=== PATIENT | female | born 1995 | race Two or more races ===

== ENCOUNTER 2016-07-31 22:56 | Emergency (ER) | payer MEDICAID ==
[~2016-07-31] VITALS: Ht 162.6 cm; Wt 45.4 kg
[2016-08-01 00:25] LABS: DEFINITIVE VIEW TRANSMISSION; Hematocrit 45.2 % (36.0-46.0); Hemoglobin 14.9 g/dL (12.2-16.2); Mean Corpuscular Hemoglobin 29.2 pg (28.0-32.0); Mean Corpuscular Volume 88.4 fL (80.0-100.0); Platelet Count (auto) 312 10^3/uL (140-450); Red Cell Distribution Width 12.3 % (11.6-16.0); SUSPECT VIEW TRANSMISSION; White Blood Cell 17.7 10^3/uL (4.4-10.8)
[2016-08-01 00:35] LABS: Metamyelocytes % 0; Myelocytes % 0; Promyelocytes % 0; Reactive Lymphocytes 0
[2016-08-01 00:56] LABS: Albumin 4.7 g/dL (3.4-5.0); BUN/Creatinine Ratio 17.3; Calcium 9.5 mg/dL (8.5-10.1); Potassium 3.9 mmol/L (3.5-5.1)
[2016-08-01 01:08] LABS: Bilirubin, Total 0.9 mg/dL (0.2-1.0); Total Protein 8.3 g/dL (6.4-8.2)
[2016-08-01 02:11] LABS: Platelet Estimate Adequate; RBC Morphology Normal
[2016-08-01 03:01] VITALS: BP 119/70
== END 2016-08-01 05:14 | disposition left against medical advice (07) ==
LOC: ER 22:57
DX: R11.2 Nausea with vomiting, unspecified (principal); Z53.21 Procedure and treatment not carried out due to patient leaving prior to being seen by health care provider
CPT/HCPCS: 36415; 80053; 85007; 85027

== ENCOUNTER 2017-03-13 11:29 | Emergency (ER) | payer MEDICAID ==
[~2017-03-13] VITALS: Ht 180.3 cm; Wt 46.7 kg
[2017-03-13] MEDS ORDERED: PANTOPRAZOLE 40 MG/10 ML VIAL IV STA (13:46)
[2017-03-13] MEDS ORDERED: SODIUM CHLORIDE 0.9% 500 ML IVB ONE (13:46)
[2017-03-13] MEDS ORDERED: ONDANSETRON HCL 4 MG/2 ML VIAL IV ONE (14:00)
[2017-03-13 14:22] LABS: Urine Bilirubin Negative (Negative); Urine Blood Negative /uL (Negative); Urine Color Yellow (Yellow); Urine Glucose Normal (Normal); Urine Ketone 1+ (Negative); Urine Mucus MODERATE (None Seen); Urine Nitrite Negative (Negative); Urine RBC 2 /hpf (0 - 4); Urine Squamous Epithelial Cell FEW /hpf (<5); Urine Urobilinogen Normal (Negative); Urine pH 5.5 (5.0-8.0)
[2017-03-13] MEDS ORDERED: DEXTROSE 50% SYRINGE 50 ML IV ONE (14:30)
[2017-03-13 14:40] LABS: Basophils # (auto) 0 uL; Basophils % (auto) 0.5 % (0.0-2.0); Eosinophils # (auto) 0 uL; Eosinophils % (auto) 0.2 % (0.0-7.0); Hematocrit 44.7 % (36.0-46.0); Hemoglobin 15.1 g/dL (12.2-16.2); Lymphocytes # (auto) 1.2 uL; Lymphocytes % (auto) 20.1 % (10.0-50.0); Mean Corpuscular Hemoglobin 30.8 pg (28.0-32.0); Mean Corpuscular Hgb Conc. 33.8 g/dL (32.0-36.0); Mean Platelet Volume 7.2 fL (6.9-10.8); Monocytes # (auto) 0.5 uL; Monocytes % (auto) 8.3 % (0.0-12.0); Neutrophils # (auto) 4.2 uL; Neutrophils % (auto) 70.9 % (37.0-80.0); Nucleated Red Blood Cells % 0.1 %; Platelet Count (auto) 255 10^3/uL (140-450); White Blood Cell 5.9 10^3/uL (4.4-10.8)
[2017-03-13] MEDS ORDERED: DEXTROSE (50%) 50ML SYRG IV ONE (14:45)
[2017-03-13 14:50] VITALS: BP 110/83
[2017-03-13 15:24] LABS: Albumin 4.2 g/dL (3.4-5.0); BUN/Creatinine Ratio 23.7; Bilirubin, Total 0.4 mg/dL (0.2-1.0); Potassium 3.5 mmol/L (3.5-5.1); Total Protein 7.9 g/dL (6.4-8.2)
== END 2017-03-13 16:25 | disposition home or self-care (01) ==
LOC: ER 11:29
DX: K29.70 Gastritis, unspecified, without bleeding (principal); N39.0 Urinary tract infection, site not specified; F17.210 Nicotine dependence, cigarettes, uncomplicated
CPT/HCPCS: 36415; 80053; 81001; 81025; 82962; 83690; 85025; 94761; 96374; 96375; 99284; C9113; J2405; J7042

== ENCOUNTER 2017-06-26 07:49 | Emergency (ER) | payer MEDICAID ==
[~2017-06-26] VITALS: Ht 162.6 cm; Wt 46.3 kg
[2017-06-26 08:07] VITALS: BP 133/91
[2017-06-26 08:39] LABS: Basophils # (auto) 0 uL; Basophils % (auto) 0.6 % (0.0-2.0); Eosinophils # (auto) 0.1 uL; Eosinophils % (auto) 0.6 % (0.0-7.0); Hematocrit 40.9 % (36.0-46.0); Hemoglobin 13.6 g/dL (12.2-16.2); Lymphocytes # (auto) 2.8 uL; Lymphocytes % (auto) 33.5 % (10.0-50.0); Mean Corpuscular Hgb Conc. 33.2 g/dL (32.0-36.0); Mean Corpuscular Volume 90.3 fL (80.0-100.0); Monocytes # (auto) 0.7 uL; Neutrophils # (auto) 4.8 uL; Neutrophils % (auto) 57.3 % (37.0-80.0); Platelet Count (auto) 297 10^3/uL (140-450); Red Blood Cells 4.53 10^6/uL (4.0-5.20); Red Cell Distribution Width 13.2 % (11.8-14.3); White Blood Cell 8.3 10^3/uL (4.4-10.8)
[2017-06-26 08:59] LABS: Albumin 3.6 g/dL (3.4-5.0); BUN/Creatinine Ratio 13.1; Bilirubin, Total 0.6 mg/dL (0.2-1.0); Calcium 8.5 mg/dL (8.5-10.1); Potassium 3.7 mmol/L (3.5-5.1); Total Protein 7.4 g/dL (6.4-8.2)
== END 2017-06-26 09:38 | disposition home or self-care (01) ==
LOC: ER 07:49
DX: N92.6 Irregular menstruation, unspecified (principal); F17.210 Nicotine dependence, cigarettes, uncomplicated
CPT/HCPCS: 36415; 80053; 81025; 85025

== ENCOUNTER 2017-11-07 10:22 | Emergency (ER) | payer MEDICAID ==
[~2017-11-07] VITALS: Ht 162.6 cm; Wt 47.6 kg
[2017-11-07 11:03] LABS: Urine Bacteria FEW /hpf (None Seen); Urine Blood 1+ /uL (Negative); Urine Mucus FEW (None Seen); Urine Specific Gravity 1.012 (1.001-1.035); Urine WBC 1 /hpf (0 - 5)
[2017-11-07 12:21] VITALS: BP 107/75
== END 2017-11-07 12:20 | disposition home or self-care (01) ==
LOC: ER 10:22
DX: O20.0 Threatened abortion (principal); O99.331 Smoking (tobacco) complicating pregnancy, first trimester; Z3A.01 Less than 8 weeks gestation of pregnancy
CPT/HCPCS: 36415; 76801; 76817; 81001; 84702

== ENCOUNTER 2018-02-11 16:46 | Emergency (ER) | payer MEDICAID ==
[~2018-02-11] VITALS: Ht 162.6 cm; Wt 50.8 kg
[2018-02-11 17:44] LABS: Basophils # (auto) 0 uL; Basophils % (auto) 0.4 % (0.0-2.0); Eosinophils # (auto) 0 uL; Eosinophils % (auto) 0.5 % (0.0-7.0); Hematocrit 40.6 % (36.0-46.0); Hemoglobin 13.5 g/dL (12.2-16.2); Lymphocytes # (auto) 2.2 uL; Lymphocytes % (auto) 28.5 % (10.0-50.0); Mean Corpuscular Hemoglobin 30.3 pg (28.0-32.0); Mean Corpuscular Hgb Conc. 33.4 g/dL (32.0-36.0); Mean Corpuscular Volume 90.6 fL (80.0-100.0); Monocytes # (auto) 0.6 uL; Monocytes % (auto) 7.9 % (0.0-12.0); Neutrophils # (auto) 4.7 uL; Neutrophils % (auto) 62.7 % (37.0-80.0); Nucleated Red Blood Cells % 0.1 %; Platelet Count (auto) 269 10^3/uL (140-450); Red Blood Cells 4.47 10^6/uL (4.0-5.20); Red Cell Distribution Width 12.9 % (11.8-14.3); White Blood Cell 7.6 10^3/uL (4.4-10.8)
[2018-02-11 17:57] LABS: Albumin 3.7 g/dL (3.4-5.0); Calcium 8.4 mg/dL (8.5-10.1); Potassium 3.8 mmol/L (3.5-5.1)
[2018-02-11 18:00] LABS: BUN/Creatinine Ratio 16.7; Bilirubin, Total 0.3 mg/dL (0.2-1.0); Total Protein 6.6 g/dL (6.4-8.2)
[2018-02-11 18:05] LABS: Urine Bacteria NONE SEEN /hpf (None Seen); Urine Blood Negative /uL (Negative); Urine Mucus FEW (None Seen); Urine Specific Gravity 1.005 (1.001-1.035); Urine WBC 1 /hpf (0 - 5)
[2018-02-11 18:39] VITALS: BP 106/68
== END 2018-02-11 19:23 | disposition home or self-care (01) ==
LOC: ER 16:56
DX: R10.2 Pelvic and perineal pain (principal); F17.210 Nicotine dependence, cigarettes, uncomplicated; F12.10 Cannabis abuse, uncomplicated; F15.10 Other stimulant abuse, uncomplicated
CPT/HCPCS: 36415; 80053; 81001; 84702; 85025

== ENCOUNTER 2018-08-10 23:14 | Observation (INO) | payer MEDICAID ==
[~2018-08-10] VITALS: Ht 162.6 cm; Wt 63.0 kg
[2018-08-10] MEDS ORDERED: HYDR250I6 IM (23:37)
[2018-08-10] MEDS ORDERED: PREN-96 PO (23:38)
[2018-08-10] MEDS ORDERED: LACTATED RINGER'S 1,000 ML IV ONE (23:47)
[2018-08-10] MEDS ORDERED: TERBUTALINE SULFATE 1 MG/ML 1ML VIAL SC ONE (23:50)
[2018-08-10] MEDS: TERBUTALINE SULFATE 1 MG/ML 1ML VIAL SC SCH (23:55)
[2018-08-11] MEDS: TERBUTALINE SULFATE 1 MG/ML 1ML VIAL SC SCH (00:22)
[2018-08-11] MEDS ORDERED: NIF10C GT (10:18)
[2018-08-11] MEDS ORDERED: PROG100C4 PO (10:19)
== END 2018-08-11 01:20 | disposition home or self-care (01) | DRG 565 ==
LOC: LDRP 23:14
PROVIDERS: ADMIT Specialist; ATTEND Specialist
DX: O47.02 False labor before 37 completed weeks of gestation, second trimester (principal); O62.9 Abnormality of forces of labor, unspecified; Z3A.27 27 weeks gestation of pregnancy
CPT/HCPCS: 59025; 81002; 96366; 96372; G0378; J3105; 96365

== ENCOUNTER 2018-08-11 09:45 | Observation (INO) | payer MEDICAID ==
[~2018-08-11 09:45] MED LIST: HYDR250I6 IM; PREN-96 PO
[2018-08-11] MEDS ORDERED: BETAMETHASONE ACET (6MG/ML) 5ML VIAL IM SCH (10:00)
[2018-08-11] MEDS ORDERED: NIF10C GT (10:18)
[2018-08-11] MEDS ORDERED: PROG100C4 PO (10:19)
[2018-08-11] MEDS ORDERED: TERBUTALINE SULFATE 1 MG/ML 1ML VIAL SC ONE (10:21)
[2018-08-11] MEDS ORDERED: TERBUTALINE SULFATE 1 MG/ML 1ML VIAL SC SCH (10:30)
== END 2018-08-11 11:00 | disposition home or self-care (01) | DRG 566 ==
LOC: LDRP 09:45
PROVIDERS: ADMIT Obstetrics & Gynecology; ATTEND Obstetrics & Gynecology
DX: O62.9 Abnormality of forces of labor, unspecified (principal); Z3A.27 27 weeks gestation of pregnancy
CPT/HCPCS: 59025; 96372; G0378; J0702; J3105

== ENCOUNTER 2018-08-12 10:05 | Observation (INO) | payer MEDICAID ==
[~2018-08-12 10:05] MED LIST changes: +NIF10C GT; +PROG100C4 PO
[2018-08-12] MEDS ORDERED: BETAMETHASONE ACET (6MG/ML) 5ML VIAL IM ONE (10:30)
== END 2018-08-12 10:55 | disposition home or self-care (01) | DRG 563 ==
LOC: LDRP 10:05
PROVIDERS: ADMIT Obstetrics & Gynecology; ATTEND Obstetrics & Gynecology
DX: O60.02 Preterm labor without delivery, second trimester (principal); F32.9 Major depressive disorder, single episode, unspecified; O99.342 Other mental disorders complicating pregnancy, second trimester; Z3A.27 27 weeks gestation of pregnancy
CPT/HCPCS: 59025; 81002; 96372; G0378; J0702

== ENCOUNTER 2018-08-18 20:55 | Observation (INO) | payer MEDICAID ==
[~2018-08-18 20:55] MED LIST changes: -PROG100C4 PO
== END 2018-08-18 21:45 | disposition home or self-care (01) | DRG 566 ==
LOC: LDRP 20:55
PROVIDERS: ADMIT Obstetrics & Gynecology; ATTEND Obstetrics & Gynecology
DX: O62.9 Abnormality of forces of labor, unspecified (principal); Z3A.28 28 weeks gestation of pregnancy
CPT/HCPCS: 59025; 81002; G0378

== ENCOUNTER 2018-08-26 09:25 | Observation (INO) | payer MEDICAID | END 2018-08-26 10:15 | disposition home or self-care (01) | DRG 563 | LOC: LDRP 09:25 | PROVIDERS: ADMIT Specialist; ATTEND Specialist | DX: O60.03 Preterm labor without delivery, third trimester (principal); O26.873 Cervical shortening, third trimester; Z3A.29 29 weeks gestation of pregnancy | CPT/HCPCS: 59025; 81002; G0378 ==

== ENCOUNTER 2018-08-26 19:09 | Observation (INO) | payer MEDICAID ==
[2018-08-26] MEDS ORDERED: TERBUTALINE SULFATE 1 MG/ML 1ML VIAL SC ONE ×2 (20:15→21:15)
== END 2018-08-26 22:07 | disposition home or self-care (01) | DRG 563 ==
LOC: LDRP 19:09
PROVIDERS: ADMIT Specialist; ATTEND Specialist
DX: O60.03 Preterm labor without delivery, third trimester (principal); Z3A.29 29 weeks gestation of pregnancy
CPT/HCPCS: 59025; 81002; 96372; G0378; J3105

== ENCOUNTER 2018-09-01 23:24 | Observation (INO) | payer MEDICAID ==
[~2018-09-01] VITALS: Ht 162.6 cm; Wt 64.4 kg
[2018-09-01] MEDS ORDERED: LACTATED RINGER'S 1,000 ML IV SCH (23:38)
[2018-09-01] MEDS ORDERED: TERBUTALINE SULFATE 1 MG/ML 1ML VIAL SC SCH (23:45)
[2018-09-02] MEDS ORDERED: PROG100C4 PO (00:08)
[2018-09-02] MEDS ORDERED: TERBUTALINE SULFATE 1 MG/ML 1ML VIAL SC ONE (00:15)
[2018-09-02] MEDS ORDERED: LACTATED RINGER'S 1,000 ML IV SCH (23:38)
== END 2018-09-02 02:03 | disposition home or self-care (01) | DRG 566 ==
LOC: LDRP 23:24
PROVIDERS: ADMIT Specialist; ATTEND Specialist
DX: O62.9 Abnormality of forces of labor, unspecified (principal); O60.03 Preterm labor without delivery, third trimester; Z3A.30 30 weeks gestation of pregnancy
CPT/HCPCS: 59025; 76815; 81002; 94760; 96372; G0378; J3105; 96361; 96365; 96366

== ENCOUNTER 2018-09-02 09:20 | Observation (INO) | payer MEDICAID ==
[~2018-09-02 09:20] MED LIST changes: +PROG100C4 PO
== END 2018-09-02 10:20 | disposition home or self-care (01) | DRG 566 ==
LOC: LDRP 09:20
PROVIDERS: ADMIT Specialist; ATTEND Specialist
DX: O62.9 Abnormality of forces of labor, unspecified (principal); O26.873 Cervical shortening, third trimester; Z3A.30 30 weeks gestation of pregnancy
CPT/HCPCS: 59025; 81002; G0378

== ENCOUNTER 2018-09-03 16:40 | Observation (INO) | payer MEDICAID ==
[2018-09-03] MEDS ORDERED: LACTATED RINGER'S 1,000 ML IV ONE (17:18)
[2018-09-03] MEDS: TERBUTALINE SULFATE 1 MG/ML 1ML VIAL SC SCH ×3 (17:28→19:04)
== END 2018-09-03 19:55 | disposition home or self-care (01) | DRG 566 ==
LOC: LDRP 16:40
PROVIDERS: ADMIT Specialist; ATTEND Specialist
DX: O62.9 Abnormality of forces of labor, unspecified (principal); O60.03 Preterm labor without delivery, third trimester; Z3A.30 30 weeks gestation of pregnancy
CPT/HCPCS: 59025; 81002; 96372; G0378; J3105; 96361; 96365

== ENCOUNTER 2018-09-04 14:45 | Observation (INO) | payer MEDICAID ==
[2018-09-04] MEDS ORDERED: TERBUTALINE SULFATE 1 MG/ML 1ML VIAL SC SCH (15:30)
[2018-09-04] MEDS ORDERED: LACTATED RINGER'S 1,000 ML IV ONE (15:36)
== END 2018-09-04 16:30 | disposition home or self-care (01) | DRG 563 ==
LOC: LDRP 14:45
PROVIDERS: ADMIT Obstetrics & Gynecology; ATTEND Obstetrics & Gynecology
DX: O60.03 Preterm labor without delivery, third trimester (principal); O99.343 Other mental disorders complicating pregnancy, third trimester; F32.9 Major depressive disorder, single episode, unspecified; Z3A.30 30 weeks gestation of pregnancy; Z87.891 Personal history of nicotine dependence
CPT/HCPCS: 59025; 81002; G0378; J3105; 96372

== ENCOUNTER 2018-09-06 00:09 | Observation (INO) | payer MEDICAID ==
[~2018-09-06] VITALS: Ht 162.6 cm; Wt 54.4 kg
[~2018-09-06 00:09] MED LIST changes: -HYDR250I6 IM
[2018-09-06] MEDS ORDERED: TERBUTALINE SULFATE 1 MG/ML 1ML VIAL SC SCH (00:45)
[2018-09-06] MEDS ORDERED: TERBUTALINE SULFATE 1 MG/ML 1ML VIAL SC ONE (00:47)
[2018-09-06] MEDS ORDERED: NIFEdipine 10 MG CAP PO ONE (02:00)
== END 2018-09-06 00:45 | disposition home or self-care (01) | DRG 563 ==
LOC: LDRP 00:09
PROVIDERS: ADMIT Obstetrics & Gynecology; ATTEND Obstetrics & Gynecology
DX: O60.03 Preterm labor without delivery, third trimester (principal); Z3A.31 31 weeks gestation of pregnancy; Z87.891 Personal history of nicotine dependence
CPT/HCPCS: 59025; 81002; 96372; G0378; J3105

== ENCOUNTER 2018-09-17 09:06 | Observation (INO) | payer MEDICAID | END 2018-09-17 10:55 | disposition home or self-care (01) | DRG 563 | LOC: LDRP 09:06 | PROVIDERS: ADMIT Obstetrics & Gynecology; ATTEND Obstetrics & Gynecology | DX: O60.03 Preterm labor without delivery, third trimester (principal); O26.893 Other specified pregnancy related conditions, third trimester; F32.9 Major depressive disorder, single episode, unspecified; N89.8 Other specified noninflammatory disorders of vagina; O99.343 Other mental disorders complicating pregnancy, third trimester; Z87.891 Personal history of nicotine dependence; Z3A.32 32 weeks gestation of pregnancy | CPT/HCPCS: 59025; 81002; G0378 ==

== ENCOUNTER 2018-09-22 19:10 | Observation (INO) | payer MEDICAID | END 2018-09-22 20:00 | disposition home or self-care (01) | DRG 566 | LOC: LDRP 19:10 | PROVIDERS: ADMIT Specialist; ATTEND Specialist | DX: O00.01 Abdominal pregnancy with intrauterine pregnancy (principal); O26.893 Other specified pregnancy related conditions, third trimester; R11.0 Nausea; O62.9 Abnormality of forces of labor, unspecified; Z3A.33 33 weeks gestation of pregnancy; Z87.891 Personal history of nicotine dependence | CPT/HCPCS: 59025; 81002; G0378 ==

== ENCOUNTER 2018-09-24 10:15 | Observation (INO) | payer MEDICAID ==
[2018-09-24] MEDS ORDERED: HYDR250I6 IM (10:30)
== END 2018-09-24 10:45 | disposition home or self-care (01) | DRG 563 ==
LOC: LDRP 10:15
PROVIDERS: ADMIT Obstetrics & Gynecology; ATTEND Obstetrics & Gynecology
DX: O60.03 Preterm labor without delivery, third trimester (principal); Z3A.33 33 weeks gestation of pregnancy
CPT/HCPCS: 59025; 81002; G0378

== ENCOUNTER 2018-10-02 11:05 | Observation (INO) | payer MEDICAID ==
[~2018-10-02 11:05] MED LIST changes: +HYDR250I6 IM; -PROG100C4 PO
== END 2018-10-02 12:05 | disposition home or self-care (01) | DRG 563 ==
LOC: LDRP 11:05
PROVIDERS: ADMIT Obstetrics & Gynecology; ATTEND Obstetrics & Gynecology
DX: O60.03 Preterm labor without delivery, third trimester (principal); O26.893 Other specified pregnancy related conditions, third trimester; R42 Dizziness and giddiness; Z3A.34 34 weeks gestation of pregnancy
CPT/HCPCS: 59025; 81002; 82948; 82962; G0378

== ENCOUNTER 2018-10-08 12:10 | Observation (INO) | payer MEDICAID ==
[~2018-10-08 12:10] MED LIST changes: -HYDR250I6 IM
[2018-10-08 13:46] LABS: Basophils # (auto) 0 uL; Basophils % (auto) 0.4 % (0.0-2.0); Eosinophils # (auto) 0.3 uL; Hematocrit 33.4 % (36.0-46.0); Hemoglobin 11.3 g/dL (12.2-16.2); Lymphocytes # (auto) 1.4 uL; Lymphocytes % (auto) 14.2 % (10.0-50.0); Mean Corpuscular Hemoglobin 29.1 pg (28.0-32.0); Mean Corpuscular Hgb Conc. 33.9 g/dL (32.0-36.0); Monocytes # (auto) 0.8 uL; Monocytes % (auto) 8.3 % (0.0-12.0); Neutrophils # (auto) 7.2 uL; Neutrophils % (auto) 74.1 % (37.0-80.0); Platelet Count (auto) 239 10^3/uL (140-450); Red Blood Cells 3.88 10^6/uL (4.0-5.20); Red Cell Distribution Width 13.3 % (11.8-14.3); White Blood Cell 9.8 10^3/uL (4.4-10.8)
[2018-10-08 14:03] LABS: INR < 0.93 (0.9-1.15); Partial Thromboplastin Time 26.4 sec (23.64-32.05)
[2018-10-08 14:38] LABS: Alanine Aminotransferase 20 U/L (13-56); Albumin 2.5 g/dL (3.4-5.0); Anion Gap 10 (5-15); Aspartate Aminotransferase 15 U/L (15-37); BUN/Creatinine Ratio 11.9; Blood Urea Nitrogen 5 mg/dL (7-18); Calcium 8.2 mg/dL (8.5-10.1); Carbon Dioxide 22 mmol/L (21-32); Chloride 110 mmol/L (98-107); GFR African American 240 mL/min; GFR Non-African American 199 mL/min; Glucose 80 mg/dL (74-106); Potassium 3.7 mmol/L (3.5-5.1); Sodium 142 mmol/L (136-145)
[2018-10-08 14:41] LABS: Alkaline Phosphatase 132 U/L (45-117); Bilirubin, Total 0.3 mg/dL (0.2-1.0); Total Protein 6.3 g/dL (6.4-8.2)
[2018-10-08 16:59] LABS: Uric Acid 3.2 mg/dL (2.6-6.0)
== END 2018-10-08 15:30 | disposition home or self-care (01) | DRG 563 ==
LOC: LDRP 12:10
PROVIDERS: ADMIT Obstetrics & Gynecology; ATTEND Obstetrics & Gynecology
DX: O60.03 Preterm labor without delivery, third trimester (principal); O26.893 Other specified pregnancy related conditions, third trimester; H53.8 Other visual disturbances; R11.0 Nausea; Z3A.35 35 weeks gestation of pregnancy
CPT/HCPCS: 36415; 59025; 76818; 80053; 81002; 84550; 85025; 85610; 85730; G0378

== ENCOUNTER 2018-11-04 13:07 | Observation (INO) | payer MEDICAID ==
[2018-11-04] MEDS ORDERED: LACTATED RINGER'S 1,000 ML IV ONE (14:00)
[2018-11-04 14:36] LABS: Basophils # (auto) 0 uL; Basophils % (auto) 0.3 % (0.0-2.0); Eosinophils # (auto) 0.2 uL; Eosinophils % (auto) 2.4 % (0.0-7.0); Hematocrit 33.8 % (36.0-46.0); Hemoglobin 11.5 g/dL (12.2-16.2); Lymphocytes # (auto) 1.5 uL; Lymphocytes % (auto) 19.6 % (10.0-50.0); Mean Corpuscular Hemoglobin 28.5 pg (28.0-32.0); Mean Corpuscular Hgb Conc. 33.9 g/dL (32.0-36.0); Mean Corpuscular Volume 83.9 fL (80.0-100.0); Monocytes # (auto) 0.7 uL; Monocytes % (auto) 9.8 % (0.0-12.0); Neutrophils # (auto) 5.1 uL; Neutrophils % (auto) 67.9 % (37.0-80.0); Platelet Count (auto) 238 10^3/uL (140-450); Red Blood Cells 4.03 10^6/uL (4.0-5.20); Red Cell Distribution Width 13.4 % (11.8-14.3); White Blood Cell 7.6 10^3/uL (4.4-10.8)
[2018-11-04 14:50] LABS: Calcium 8.6 mg/dL (8.5-10.1); Potassium 3.6 mmol/L (3.5-5.1)
[2018-11-04 14:54] LABS: INR < 0.93 (0.9-1.15); Partial Thromboplastin Time 26.7 sec (23.64-32.05)
[2018-11-04 14:56] LABS: Albumin 2.4 g/dL (3.4-5.0); BUN/Creatinine Ratio 11.6; Bilirubin, Total 0.3 mg/dL (0.2-1.0); Total Protein 6.3 g/dL (6.4-8.2)
== END 2018-11-04 15:55 | disposition home or self-care (01) | DRG 566 ==
LOC: LDRP 13:07
PROVIDERS: ADMIT Obstetrics & Gynecology; ATTEND Obstetrics & Gynecology
DX: O46.93 Antepartum hemorrhage, unspecified, third trimester (principal); Z3A.39 39 weeks gestation of pregnancy
CPT/HCPCS: 36415; 76818; 80053; 85025; 85610; 85730; 86850; 86870; 86900; 86901; G0378

== ENCOUNTER 2018-11-05 10:58 | Observation (INO) | payer MEDICAID | END 2018-11-05 12:15 | disposition home or self-care (01) | DRG 566 | LOC: LDRP 10:58 | PROVIDERS: ADMIT Specialist; ATTEND Specialist | DX: O36.8390 Maternal care for abnormalities of the fetal heart rate or rhythm, unspecified trimester, not applicable or unspecified (principal); O26.893 Other specified pregnancy related conditions, third trimester; N89.8 Other specified noninflammatory disorders of vagina; R10.31 Right lower quadrant pain; R10.32 Left lower quadrant pain; Z3A.39 39 weeks gestation of pregnancy | CPT/HCPCS: 59025; 81002; G0378 ==

== ENCOUNTER 2018-11-07 21:35 | Observation (INO) | payer MEDICAID ==
[~2018-11-07] VITALS: Ht 162.6 cm; Wt 70.3 kg
[~2018-11-07 21:35] MED LIST changes: -NIF10C GT
== END 2018-11-08 00:07 | disposition home or self-care (01) | DRG 566 ==
LOC: LDRP 21:35
PROVIDERS: ADMIT Obstetrics & Gynecology; ATTEND Obstetrics & Gynecology
DX: O62.9 Abnormality of forces of labor, unspecified (principal); O48.0 Post-term pregnancy; Z3A.40 40 weeks gestation of pregnancy
CPT/HCPCS: 59025; 76818; 81002; G0378

== ENCOUNTER 2018-11-15 18:06 | Emergency (ER) | payer MEDICAID ==
[~2018-11-15] VITALS: Ht 162.6 cm; Wt 64.4 kg
[2018-11-15 18:15] VITALS: BP 117/79
== END 2018-11-15 20:24 | disposition home or self-care (01) ==
LOC: ER 18:13
DX: N93.8 Other specified abnormal uterine and vaginal bleeding (principal); Z48.01 Encounter for change or removal of surgical wound dressing

== ENCOUNTER 2020-06-21 10:39 | Emergency (ER) | payer MEDICAID ==
[~2020-06-21] VITALS: Ht 160 cm; Wt 49.9 kg
[2020-06-21 12:16] VITALS: BP 117/76
== END 2020-06-21 12:20 | disposition home or self-care (01) ==
LOC: ER 10:39
DX: R51.9 Headache, unspecified (principal)
CPT/HCPCS: 70450; 81002; 81025

== ENCOUNTER 2022-04-01 10:28 | Emergency (ER) | payer MEDICAID ==
[~2022-04-01] VITALS: Ht 162.6 cm; Wt 52.2 kg
[2022-04-01] MEDS ORDERED: ONDANSETRON ODT 4 MG TAB PO ONE (11:00)
[2022-04-01 12:16] LABS: Urine Bacteria NONE SEEN /hpf (None Seen); Urine Blood Negative /uL (Negative); Urine Mucus FEW (None Seen); Urine Specific Gravity 1.033 (1.001-1.035); Urine WBC 1 /hpf (0 - 5)
[2022-04-01] MEDS ORDERED: ONDA-144 PO (14:55)
== END 2022-04-01 16:09 | disposition home or self-care (01) ==
LOC: ER 10:28
DX: F12.10 Cannabis abuse, uncomplicated (principal); R11.2 Nausea with vomiting, unspecified; Z79.899 Other long term (current) drug therapy
CPT/HCPCS: 81001; 81025; 99283; Q0162

== ENCOUNTER 2023-09-05 15:18 | Emergency (ER) | payer MEDICAID ==
[~2023-09-05] VITALS: Ht 162.6 cm; Wt 56.8 kg
[~2023-09-05 15:18] MED LIST changes: +ONDA-144 PO
[2023-09-05 16:24] VITALS: BP 100/78; PULSE 81; RESP 18; O2SAT 98
[2023-09-05 17:51] LABS: Basophils # (auto) 0 10 ^3/uL (0-0.2); Basophils % (auto) 0.3 % (0.0-2.0); Eosinophils # (auto) 0.1 10 ^3/uL (0-0.8); Eosinophils % (auto) 0.4 % (0.0-7.0); Hematocrit 39.1 % (36.0-46.0); Hemoglobin 13.4 g/dL (12.2-16.2); Lymphocytes # (auto) 1.5 10 ^3/uL (0.4-5.4); Lymphocytes % (auto) 11.6 % (10.0-50.0); Mean Corpuscular Hemoglobin 30.3 pg (28.0-32.0); Mean Corpuscular Hgb Conc. 34.2 g/dL (32.0-36.0); Mean Corpuscular Volume 88.7 fL (80.0-100.0); Monocytes # (auto) 0.7 10 ^3/uL (0-1.3); Neutrophils # (auto) 10.8 10 ^3/uL (1.6-8.6); Neutrophils % (auto) 82.7 % (37.0-80.0); Red Blood Cells 4.41 10^6/uL (4.0-5.20); Red Cell Distribution Width 13.4 % (11.8-14.3); White Blood Cell 13.1 10^3/uL (4.4-10.8)
[2023-09-05 18:11] LABS: Chloride 112 mmol/L (98-107); Potassium 3.7 mmol/L (3.5-5.1); Sodium 139 mmol/L (136-145)
[2023-09-05 18:12] LABS: Anion Gap 1 (5-15); Calcium 9.7 mg/dL (8.5-10.1); Carbon Dioxide 26 mmol/L (20-30)
[2023-09-05 18:13] LABS: Urine Bacteria FEW /hpf (None Seen); Urine Blood Negative /uL (Negative); Urine Clarity Clear (Clear); Urine Color Colorless (Yellow); Urine Protein, UAD Negative (Negative); Urine Specific Gravity 1.008 (1.001-1.035); Urine Urobilinogen Normal (Negative); Urine WBC <1 /hpf (0 - 5); Urine pH 5.5 (5.0-9.0)
[2023-09-05 18:17] LABS: BUN/Creatinine Ratio 14.3 (10.0-20.0); Blood Urea Nitrogen 9 mg/dL (9-23); Glucose 92 mg/dL (74-106)
== END 2023-09-05 22:37 | disposition left against medical advice (07) ==
LOC: ER 15:25
DX: R42 Dizziness and giddiness (principal); R10.2 Pelvic and perineal pain; F12.10 Cannabis abuse, uncomplicated
CPT/HCPCS: 36415; 80048; 81001; 84484; 84702; 85025